=== PATIENT | male | born 1990 | race Caucasian/White ===

== ENCOUNTER 2020-10-05 06:40 | Emergency (ER) | payer SELFPAY ==
[~2020-10-05] VITALS: Ht 182.9 cm; Wt 104.3 kg
[2020-10-05 06:49] VITALS: BP 162/98
--- NOTE | 2020-10-05 06:55 | NUR ---
PT TAKEN TO BED 6
--- NOTE | 2020-10-05 07:00 | NUR ---
30/M BIB self complaining of chest pain x 15 min. ago after taking meth stating " i think i over did it". Pt AAOX4, ambulatory, respirations are even and unlabored to room air, denies any fever n/v/d. Pt tachycardic 121 and hypertensive 163/102. Pt hooked to monitors and changed to gown. Safety measures in place, will continue to [facility] hx: high cholesterol allergies: nka
--- NOTE | 2020-10-05 07:10 | NUR ---
12 lead EKG done. Pt tachycardic at 123. made aware.
--- NOTE | 2020-10-05 07:15 | NUR ---
Endorsed to [place] [facility] for continuity of care.
[2020-10-05 07:35] LABS: BASOPHILS # (AUTO) 0.1 K/uL (0.00-0.22); BASOPHILS % (AUTO) 0.7 % (0.0-2.0); EOSINOPHILS % (AUTO) 0.2 % (0.0-4.0); HEMATOCRIT 47.2 % (36-52); HEMOGLOBIN 15.9 g/dL (12.0-18.0); LYMPHOCYTES # (AUTO) 2.9 K/uL (2.0-11.5); MEAN CORPUSCULAR HEMOGLOBIN 28 pg (27-31); MEAN CORPUSCULAR HGB CONC 34 g/dL (33-37); MEAN CORPUSCULAR VOLUME 81.9 fL (80-94); MONOCYTES # (AUTO) 0.8 K/uL (0.8-1.0); MONOCYTES % (AUTO) 8.4 % (1.7-9.3); NEUTROPHILS # (AUTO) 5.8 K/uL (1.8-7.7); NEUTROPHILS % (AUTO) 60.7 % (42.2-75.2); PLATELET COUNT (AUTO) 246 K/uL (140-450); RED BLOOD CELL COUNT(AUTO) 5.76 MIL/uL (4.20-6.10); RED CELL DISTRIBUTION WIDTH 13.9 % (11.6-13.7); WHITE BLOOD COUNT (AUTO) 9.5 K/uL (4.8-10.8)
[2020-10-05] MEDS: NACL 0.9% 1,000 ML IV ONE ×2 (07:43→08:44)
[2020-10-05] MEDS ORDERED: diphenhydrAMINE 50 MG/ML VIAL IVP ONE (07:45)
[2020-10-05] MEDS: LORazepam 2 MG/ML VIAL IVP ONE (07:55)
[2020-10-05 08:06] LABS: ALBUMIN 4.1 g/dL (3.4-5.0); ANION GAP 11.7 (8-16); CARBON DIOXIDE 26.2 mmol/L (21-32); CREATININE 1.1 mg/dL (0.6-1.3); POTASSIUM 3.9 mmol/L (3.5-5.1); TOTAL BILIRUBIN 0.3 mg/dL (0.0-1.0)
--- NOTE | 2020-10-05 08:30 | NUR ---
PT ALERT AND AWAKE, BREATHING EVEN AND UNLABORED. PT REQUESTING MORE ATIVAN, ERMD MADE AWARE
--- NOTE | 2020-10-05 09:30 | NUR ---
Patient discharged with v/s stable. Written and verbal after care instructions about substance abuse disorder given and explained. Patient verbalized understanding. Ambulatory with steady gait. All questions addressed prior to discharge. Advised to follow up with PMD.
[2020-10-05 09:33] VITALS: BP 140/94
== END 2020-10-05 09:30 | disposition home or self-care (01) ==
LOC: MED 06:40
DX: R00.0 Tachycardia, unspecified (principal); F41.9 Anxiety disorder, unspecified; F15.10 Other stimulant abuse, uncomplicated
CPT/HCPCS: 36415; 71045; 80053; 83880; 84484; 85025; 93005; 96361; 96374; 99285; J2060; J7030